=== PATIENT | female | born 1955 | race Hispanic/Latino ===

== ENCOUNTER 2018-10-18 13:30 | Emergency (ER) | payer MEDICARE, OTHER ==
[~2018-10-18] VITALS: Ht 149.9 cm; Wt 63.5 kg
--- OUTSIDE RECORDS SUMMARY | 2018-10-18 13:34 | XMS REPORT | Continuity of Care Document ---
Author Author [facility] Address Unknown Phone Unavailable Problems Problem Status Onset Date Classification Date Reported Comments Source Pain of left hand Active Diagnosis 02/27/2018 Lissette Najam Pain in right hand Active Diagnosis 02/27/2018 Lissette Najam Lumbago due to displacement of intervertebral disc Active Problem 02/27/2018 Lissette Najam Counseling NOS Active Diagnosis 02/27/2018 Lissette Najam Medications Medication Details Route Status Patient Instructions Ordering Provider Order Date Source Duloxetine HCl 1 capsule Orally Active 60 MG Orally Once a day Najam Lissette Najam Tizanidine HCl 1 tablet as needed Orally Active 4 MG Orally Three times a day Najam Lissette Najam Hydrocodone-Acetaminophen 1 tablet as needed Orally Active 10- 300 MG Orally every 6 hrs Najam Lissette Najam Meloxicam 1 tablet Orally Active 15 MG Orally Once a day Najam Lissette Najam Lyrica 1 capsule Orally Active 200 MG Orally Twice a day Najam Lissette Najam Allergies, Adverse Reactions, Alerts Substance Category Reaction Severity Reaction type Status Date Reported Comments Source Tetnus Adverse Reaction rash Adverse Reaction Active 02/25/2018 Lissette Najam Immunizations Immunization Date Given Site Status Last Updated Comments Source Results Order Name Results Value Reference Range Date Interpretation Comments Source Vital Signs Vital Sign Value Date Comments Source Height 59 02/25/2018 Lissette Najam Diastolic (mm Hg) 80 02/25/2018 Lissette Najam Systolic (mm Hg) 129 02/25/2018 Lissette Najam Weight 143.8 02/25/2018 Lissette Najam Encounters Location Location Details Encounter Type Encounter Number Reason For Visit Attending Provider ADM Date DC Date Status Source Procedures Procedure Code Date Perfomer Comments Source
--- OUTSIDE RECORDS SUMMARY | 2018-10-18 13:34 | XMS REPORT ---
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 Name Role Phone Lissette Moser CP Unavailable Allergies, Adverse Reactions, Alerts Substance Reaction Event Type Tetnus rash Non Drug Allergy Problems Problem Type Condition Code Onset Dates Condition Status Assessment Pain of left hand M79.642 Active Assessment Pain in right hand M79.641 Active Problem Lumbago due to displacement of intervertebral disc M51.26 Active Assessment Lumbago due to displacement of intervertebral disc M51.26 Active Assessment Counseling NOS Z71.9 Active Medications Medication Code System Code Instructions Start Date End Date Status Dosage Duloxetine HCl ND 34665229517 60 MG Orally Once a day Active 1 capsule Tizanidine HCl ND 99747248579 4 MG Orally Three times a day Active 1 tablet as needed Hydrocodone-Acetaminophen ND 90825180857 10-300 MG Orally every 6 hrs Active 1 tablet as needed Meloxicam ND 22842949747 15 MG Orally Once a day Active 1 tablet Lyrica ND 69075508168 200 MG Orally Twice a day Active 1 capsule Vital Signs Date/Time: February 25, 2018 Height 59 in Blood Pressure Diastolic 80 mm Hg Blood Pressure Systolic 129 mm Hg Weight 143.8 lbs Results No Known Results Summary Purpose [employer] Submission
[2018-10-18] MEDS ORDERED: MORPHINE SULFATE INJ 4 MG/ML INJ IV NR (13:43)
[2018-10-18] MEDS ORDERED: ONDANSETRON HCL INJ 2 MG/ML VIAL IV NR (13:43)
[2018-10-18] MEDS ORDERED: SODIUM CHLORIDE 0.9% 1000ML 1,000 ML IV STA (13:43)
[2018-10-18 14:24] LABS: BASOPHILS % 0.6 % (0.0-1.0); EOSINOPHILS # (AUTO) 0.1 (0.0-0.4); EOSINOPHILS % 0.7 % (0.0-6.0); HEMOGLOBIN 14.2 g/dL (12.0-16.0); LYMPHOCYTES # (AUTO) 2.8 (1.0-3.2); LYMPHOCYTES % 40.4 % (18.0-39.1); MEAN CORPUSCULAR HEMOGLOBIN 30.9 pg (28-32); MEAN CORPUSCULAR HGB CONC 33.8 g/dL (31-35); MEAN CORPUSCULAR VOLUME 91.3 fL (81-99); MONOCYTES # (AUTO) 0.4 (0.2-0.8); MONOCYTES % 5.7 % (4.4-11.3); NEUTROPHILS # (AUTO) 3.6 (2.1-6.9); NEUTROPHILS % 52.5 % (38.7-80.0); PLATELET COUNT 211 x10e3/uL (140-360); RED CELL DISTRIBUTION WIDTH 13.3 % (11.7-14.4)
[2018-10-18 14:45] LABS: INR 0.79; PROTHROMBIN TIME 11.7 seconds (11.9-14.5)
[2018-10-18 14:46] LABS: PARTIAL THROMBOPLASTIN TIME 31.7 seconds (23.8-35.5)
[2018-10-18 14:54] LABS: BILIRUBIN,URINE NEGATIVE (NEGATIVE); CLARITY,URINE HAZY (CLEAR); COLOR,URINE YELLOW (YELLOW); KETONES,URINE NEGATIVE (NEGATIVE); LEUKOCYTE ESTERASE ,URINE NEGATIVE (NEGATIVE); NITRITE,URINE NEGATIVE (NEGATIVE); PROTEIN,URINE DIPSTICK NEGATIVE (NEGATIVE); URINE UROBILINOGEN 0.2 mg/dL (0.2 - 1)
[2018-10-18 14:55] LABS: BACTERIA,URINE RARE /HPF; EPITHELIAL CELLS,URINE MODERATE /LPF; RBC,URINE 0-5 /HPF (0-5); WBC,URINE (MAN) 0-5 /HPF (0-5)
[2018-10-18 14:57] LABS: ALBUMIN 4.2 g/dL (3.5-5.0); ALBUMIN/GLOBULIN RATIO 1.3 (0.8-2.0); CALCIUM 9.8 mg/dL (8.4-10.2); CREATININE, SERUM 0.95 mg/dL (0.57-1.11); MAGNESIUM 2.2 MG/DL (1.3-2.1)
[2018-10-18] MEDS ORDERED: IOPAMIDOL 370 MG/ML 200 ML INFUS..BTL INJ ONE (16:09)
[2018-10-18] MEDS ORDERED: SODIUM CHLORIDE 0.9% 50ML 50 ML ONE (16:09)
--- NOTE | 2018-10-18 17:55 | Diagnostic Imaging Report ---
EXAM: CT Abdomen and Pelvis WITH contrast INDICATION: Right lower quadrant pain. Appendicitis. COMPARISON: None. TECHNIQUE: Abdomen and pelvis were scanned utilizing a multidetector helical scanner from the lung base to the pubic symphysis after administration of IV contrast. Coronal and sagittal reformations were obtained. Routine protocol was performed. Scan was performed when during portal venous phase. IV CONTRAST: 100 cc of Isovue 370. ORAL CONTRAST: Water RADIATION DOSE: Total DLP: 339.29 mGy*cm Estimated effective dose: (DLP x 0.015 x size factor) mSv COMPLICATIONS: None FINDINGS: LINES and TUBES: None. LOWER THORAX: Unremarkable HEPATOBILIARY: No focal hepatic lesions. No biliary ductal dilation. GALLBLADDER: No radio-opaque stones or sludge. No wall thickening. SPLEEN: No splenomegaly. PANCREAS: No focal masses or ductal dilatation. ADRENALS: No adrenal nodules KIDNEYS/URETERS: Kidneys enhance symmetrically. No hydronephrosis. No cystic or solid mass lesions. No stones. GI TRACT: No abnormal distention, wall thickening, or evidence of bowel obstruction. Appendix is normal. PELVIC ORGANS/BLADDER: Unremarkable. LYMPH NODES: No lymphadenopathy. VESSELS: There is moderate atherosclerotic disease in the aorta and major arterial branches. PERITONEUM / RETROPERITONEUM: No free air or fluid. BONES: Advanced degenerative disc disease and spondylosis at L3-L4. Postoperative changes at L3-L4 and L4-L5 laminectomies. SOFT TISSUES: Unremarkable. IMPRESSION: 1. Normal appendix. No evidence of acute appendicitis as per clinical query. Signed by: Dr. Abigail Trevino M.D. on 10/18/2018 5:52 PM
== END 2018-10-18 18:51 | disposition home or self-care (01) ==
LOC: ER 13:30
DX: R10.31 Right lower quadrant pain (principal); M54.5 Low back pain; R11.0 Nausea; E13.9 Other specified diabetes mellitus without complications
CPT/HCPCS: 36415; 74177; 80053; 81001; 83605; 83735; 85025; 85610; 85730; 99284; J2270; J2405; J7030; Q9967

== ENCOUNTER 2019-10-05 11:32 | Outpatient (RCR) | payer MEDICARE, OTHER ==
--- NOTE | 2019-09-28 15:00 | NUR ---
Voice Evaluation History: Pt is a 64 year old female seen in clinic today for a voice evaluation secondary to muscle tension dysphonia, vocal cord polyps, and laryngopharyngeal reflux. No other pertinent past medical history provided. Pt reported that she noticed a gradual change in her vocal quality over a year ago and so went to see Dr. Villavicencio. Per report, Dr. Villavicencio found evidence of silent reflux and a polyp on her vocal cord. Pt did not know which one. Per pt report, the polyp was removed by Dr. Villavicencio. Pt stated that her voice did not get any better and recently has gotten worse. She stated that she went back to see Dr. Villavicencio, who told her the polyp is coming back. Pt reported that he increased her reflux medication to twice per day and wanted her to be evaluated and treated by a Speech Language Pathologist. Ms. Colmenares reported that her voice is raspy and cuts out on her often. She also stated that the longer she talks the worse her voice sounds and the more is cuts off suddenly. Ms. Colmenares reported frequent throat clearing and dry cough throughout the day and feels like she produces a lot of mucous. Pt smokes about 1 pack per day. She drinks two cups of coffee each day but also drinks a lot of water. Current Medications: according to the intake form completed by Ms. Colmenares, current medication list includes pantoprazole 40 mg once per day (in the morning) and famotidine 40 mg at night. Employment and use of voice: Ms. Colmenares is disabled and uses her voice for communication at home and with friends only. Per report, her vocal demand is very low Pt Goal: to sound normal Laryngeal Examination: Pt appears to have larynx at midline with unrestricted movement and normal elevation. No muscle tension was noted in the laryngeal area, glossal area, or the sternocleidomastoid area. Gentle palpation of temples, jaw, shoulders, neck, strap muscles, and larynx resulted in no discomfort or pain. Hearing: Appeared to be WFL. Objective Measurements: AverageRangeNormal Sustained Vowel88 dB87-88 dB80 dB High/Low FrequencyHigh: 370 Hz Lo: 244 [id number] By223-260 Hz Max Sustained Phonation4.7 seconds3-6 bzmewhn24-60 seconds Perceptual Measure: Ms. Colmenares feels her voice is unpredictable and feels tense when speaking because she never knows if her voice will work or not. She consistent avoids speaking in social situations or in groups because she is embarrassed by the way her voice sounds. Per report, it requires a great deal of effort to speak clearing and she must strain her voice to produce a voice loud enough for others to understand. Completion of the Voice Handicap Index (VHI) showed a total score of 43, which is reflective of a perception of a moderate voice disorder. Oral Motor Exam: An oral motor speech exam revealed structures and function of speech mechanism to be WFL. Education: Ms. Colmenares was educated regarding basic anatomy and physiology of the vocal cords. Vocal hygiene and reflux precautions were covered in extensive detail. The importance of taking reflux medications and controlling reflux with behavioral modifications was stressed extensively. Treatment/Stimulability: Various techniques to alter the way Ms. Colmenares used her voice were attempted to assess for improved vocal quality and stimulability to therapeutic stimuli. Pt demonstrated fair stimulability and was able to intermittently produce vowel sounds with improved quality. Treatment techniques were introduced and home program assigned. 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 This disorder decreases her ability to participate in activities of daily living her quality of life by limiting her participation in things he enjoys. Ms. Colmenares would benefit from voice therapy to improve functional use of voice for improved vocal quality. Prognosis: fair for improved vocal quality secondary to a high level of motivation to improve and fair stimulability to produce clear vocal quality in isolated vowel sounds. Recommendations: 1. Voice therapy 1/week X 4 weeks 2. Vocal hygiene program 3. GERD precautions Mcc Goal(s): Patient will restore vocal quality to perform functional demands of conversational speech. Short Term Goals: 1. Pt will follow vocal hygiene recommendations with independence for improvement in vocal fold health for vocalization. 2. Pt will follow GERD precautions with independence for improvement of vocal cord health. 3. Pt will implement gentle use of voice with easy onset exercises with independence. 4. Pt will complete exercises to increase loudness of speech without compromising functional and appropriate use of vocal cords with independence. 5. Pt will complete home exercise program of stretches and practice of therapeutic stimuli with independence. Thank you for including me in the care of your patient. Please do not hesitate to contact me at [phone] should you have any questions regarding this evaluation or the plan of care. Aviva Bolivar M.A. [facility]-SCREED PERSON Date of Session: 09/28/19 Analysis of Voice and Resonance X 55 minutes NOMS Voice Level 3
--- NOTE | 2019-10-12 10:44 | NUR ---
ST Note: Pt did not keep appointment scheduled today at 10:00. Called, no answer, left a VM.
== END 2019-10-16 ==
LOC: ST 11:32
PROVIDERS: ATTEND Otolaryngology
DX: R49.0 Dysphonia (principal); J38.1 Polyp of vocal cord and larynx; K21.9 Gastro-esophageal reflux disease without esophagitis

== ENCOUNTER → 2020-06-14 | Day surgery (SDC) | payer MEDICARE, OTHER ==
[2020-06-09 10:24] LABS: BASOPHILS % 0.4 % (0.0-1.0); EOSINOPHILS # (AUTO) 0.1 (0.0-0.4); EOSINOPHILS % 1.1 % (0.0-6.0); HEMATOCRIT 41.9 % (34.2-44.1); LYMPHOCYTES # (AUTO) 2.7 (1.0-3.2); LYMPHOCYTES % 37.3 % (18.0-39.1); MEAN CORPUSCULAR HEMOGLOBIN 30.4 pg (28-32); MEAN CORPUSCULAR HGB CONC 33.4 g/dL (31-35); MEAN CORPUSCULAR VOLUME 90.9 fL (81-99); MONOCYTES # (AUTO) 0.6 (0.2-0.8); NEUTROPHILS # (AUTO) 3.8 (2.1-6.9); NEUTROPHILS % 52.9 % (38.7-80.0); PLATELET COUNT 182 x10e3/uL (140-360); RED BLOOD COUNT 4.61 x10e6/uL (3.6-5.1); RED CELL DISTRIBUTION WIDTH 12.7 % (11.7-14.4)
[2020-06-09 10:40] LABS: ANION GAP 15.5 mmol/L (8-16); BLOOD UREA NITROGEN 16 mg/dL (7-26); BUN/CREATININE RATIO 18 (6-25); CALCIUM 9.2 mg/dL (8.4-10.2); CARBON DIOXIDE 26 mmol/L (22-29); CHLORIDE 104 mmol/L (98-107); EST GLOMERULAR FILTRATION RATE > 60 ML/MIN (60-); GLUCOSE 170 mg/dL (74-118); POTASSIUM 4.5 mmol/L (3.5-5.1); SODIUM 141 mmol/L (136-145)
--- NOTE | 2020-06-09 11:10 | Diagnostic Imaging Report ---
EXAMINATION: CHEST 2 VIEWS INDICATION: Pre-operative COMPARISON: None FINDINGS: LINES/TUBES:Spinal stimulator electrodes terminate at the levels of T6 and T7. LUNGS:The lungs are well-inflated. Mild left apical pleural parenchymal thickening/scarring. No focal consolidation or pulmonary edema. PLEURA:No pleural effusion or pneumothorax. MEDIASTINUM:The cardiomediastinal silhouette appears normal in size and shape. BONES/SOFT TISSUES:No acute osseous injury. Partially visualized cervical spine fusion hardware. ABDOMEN:No free air under the diaphragm. IMPRESSION: No focal pneumonia or pulmonary edema. Signed by: Justine Melara MD on 06/09/2020 11:07 AM
[~2020-06-14] MED LIST: ATORVASTATIN CA20 MG PO; CEFAZOLIN SOD 1 GM/NS 50ML 100 ML IV ONE; CYMBALTA30 MG PO; ETOMIDATE 2 MG/ML 10 ML INJ IV ONE; KETOROLAC TROMETHAMINE 30 MG/ML VIAL ONE; LIDOCAINE HCL 2% LOCAL INJ 5 ML SDV VIAL INJ ONE; LYRICA150 MG PO; MELOXICAM7.5 MG PO; ONDANSETRON HCL INJ 2MG/ML 2ML 2 MG/ML VIAL ONE; PERCOCET 10-321 EACH PO; PROPOFOL IV EMULSION 10 MG/ML 20 ML VIAL ONE; SEVOFLURANE INHAL SOLN 250 ML PEN BTL ONE; TIZANIDINE HCL4 MG PO
[2020-06-14 09:10] VITALS: BP 154/77
--- NOTE | 2020-06-15 10:07 | Operative Report ---
DATE OF PROCEDURE: 06/14/2020 SURGEON: Lv Salazar MD PREOPERATIVE DIAGNOSIS: Left carpal tunnel syndrome. POSTOPERATIVE DIAGNOSIS: Left carpal tunnel syndrome. OPERATIONS/PROCEDURES PERFORMED: The patient underwent a left open carpal tunnel release. PATIENT CASE COORDINATOR: There was no certified surgical tech/first assistant. ANESTHESIA: General endotracheal intubation anesthesia. IV FLUIDS: Per Anesthesia record. BRIEF DESCRIPTION OF THE PATIENT'S OPERATIVE PROCEDURE: Ms. Colmenares was taken to the operating room and placed in supine position on the operating table. Following induction of general anesthesia as well as an endotracheal intubation, the patient's left upper extremity was examined under anesthesia. She was found to have no gross abnormalities. The patient's upper extremity was prepped and draped in standard surgical fashion. The case was begun by creating incision along the thenar palmar crease. This incision was carried through the skin only. Blunt dissection was used to deepen the incision through the palmar fascia to the level of transverse carpal ligament. The distal edge of the transverse carpal ligament was identified and hemostat was placed beneath the ligament. The ligament was then divided in line with the skin incision. The floor of the carpal canal was evaluated and found to have no abnormalities. The tourniquet was deflated and the wound was then closed in a single layer fashion. Sterile dressings were applied. The patient was then awakened and taken to postanesthesia care unit in stable condition. MD DULCE Lamb/MODL /[id number]
== END | disposition home or self-care (01) ==
LOC: OR 05:20
PROVIDERS: ATTEND Specialist
DX: G56.02 Carpal tunnel syndrome, left upper limb (principal); E11.9 Type 2 diabetes mellitus without complications; K21.9 Gastro-esophageal reflux disease without esophagitis; G89.29 Other chronic pain; F17.210 Nicotine dependence, cigarettes, uncomplicated; Z88.7 Allergy status to serum and vaccine; Z01.810 Encounter for preprocedural cardiovascular examination; Z01.812 Encounter for preprocedural laboratory examination; Z01.818 Encounter for other preprocedural examination; Z11.59 Encounter for screening for other viral diseases; Z68.28 Body mass index [BMI] 28.0-28.9, adult
CPT/HCPCS: 36415 ×2; 64721; 71046; 80048; 82948; 85025; 93005; J0690; J1885; J2001; J2405; J2704; U0002

== ENCOUNTER → 2021-06-13 | Outpatient (CLI) | payer MEDICARE ==
[~2021-06-13] MED LIST changes: -CEFAZOLIN SOD 1 GM/NS 50ML 100 ML IV ONE; -ETOMIDATE 2 MG/ML 10 ML INJ IV ONE; +IOPAMIDOL 370 MG/ML 200 ML INFUS..BTL INJ ONE; -KETOROLAC TROMETHAMINE 30 MG/ML VIAL ONE; -LIDOCAINE HCL 2% LOCAL INJ 5 ML SDV VIAL INJ ONE; -ONDANSETRON HCL INJ 2MG/ML 2ML 2 MG/ML VIAL ONE; -PROPOFOL IV EMULSION 10 MG/ML 20 ML VIAL ONE; -SEVOFLURANE INHAL SOLN 250 ML PEN BTL ONE; +SODIUM CHLORIDE 0.9% 500ML 500 ML ONE; +SODIUM CHLORIDE 0.9% 50ML 50 ML ONE
== END ==
LOC: CT 16:20
PROVIDERS: ATTEND Internal Medicine
DX: I65.23 Occlusion and stenosis of bilateral carotid arteries (principal)
CPT/HCPCS: 36415; 70496; 82565; 96360; J7040; Q9967

== ENCOUNTER → 2021-07-26 | Outpatient (CLI) | payer MEDICARE ==
[~2021-07-26] MED LIST changes: -IOPAMIDOL 370 MG/ML 200 ML INFUS..BTL INJ ONE; -SODIUM CHLORIDE 0.9% 500ML 500 ML ONE; -SODIUM CHLORIDE 0.9% 50ML 50 ML ONE
== END ==
LOC: RAD 11:14
PROVIDERS: ATTEND Anesthesiology Pain Medicine
DX: M25.562 Pain in left knee (principal)

== ENCOUNTER → 2022-03-08 | Outpatient (CLI) | payer MEDICARE, OTHER | LOC: MRI 07:20 | PROVIDERS: ATTEND Family Medicine | DX: M54.16 Radiculopathy, lumbar region (principal) | CPT/HCPCS: 72148 ==

== ENCOUNTER → 2022-04-10 | Outpatient (CLI) | payer MEDICARE, OTHER ==
[~2022-04-10] MED LIST changes: +IOPAMIDOL 200 MG/ML 20 ML VIAL IT ONE; +IOPAMIDOL 300 MG/ML 15ML VIAL IT ONE; +LIDOCAINE HCL 1% LOCAL INJ 20 ML VIAL ONE
[2022-04-10 08:46] LABS: HEMOGLOBIN 14.5 g/dL (12.0-16.0)
[2022-04-10 09:12] LABS: INR 0.85; PROTHROMBIN TIME 12.4 seconds (11.9-14.5)
[2022-04-10 09:13] LABS: PARTIAL THROMBOPLASTIN TIME 35.2 seconds (23.8-35.5)
[2022-04-10 09:19] LABS: CREATININE, SERUM 0.73 mg/dL (0.57-1.11)
== END ==
LOC: DX 08:10
PROVIDERS: ATTEND Neurological Surgery
DX: M51.16 Intervertebral disc disorders with radiculopathy, lumbar region (principal)
CPT/HCPCS: 36415; 62304; 72132; 82565; 84520; 85014; 85049; 85610; 85730; J2001; Q9967 ×2

== ENCOUNTER → 2022-07-03 | Outpatient (CLI) | payer MEDICARE, OTHER ==
[~2022-07-03] MED LIST changes: -IOPAMIDOL 200 MG/ML 20 ML VIAL IT ONE; -IOPAMIDOL 300 MG/ML 15ML VIAL IT ONE; -LIDOCAINE HCL 1% LOCAL INJ 20 ML VIAL ONE
== END ==
LOC: MRI 12:01
PROVIDERS: ATTEND Orthopaedic Surgery
DX: M19.011 Primary osteoarthritis, right shoulder (principal); M75.111 Incomplete rotator cuff tear or rupture of right shoulder, not specified as traumatic

== ENCOUNTER → 2022-07-30 | Outpatient (CLI) | payer MEDICARE, OTHER ==
[2022-07-24 11:58] LABS: BASOPHILS # (AUTO) 0.1 (0.0-0.1); BASOPHILS % 0.6 % (0.0-1.0); EOSINOPHILS # (AUTO) 0.1 (0.0-0.4); EOSINOPHILS % 1.6 % (0.0-6.0); HEMATOCRIT 41.1 % (34.2-44.1); HEMOGLOBIN 14.1 g/dL (12.0-16.0); LYMPHOCYTES # (AUTO) 2.8 (1.0-3.2); LYMPHOCYTES % 34.5 % (18.0-39.1); MEAN CORPUSCULAR HEMOGLOBIN 31.2 pg (28-32); MEAN CORPUSCULAR HGB CONC 34.3 g/dL (31-35); MEAN CORPUSCULAR VOLUME 90.9 fL (81-99); MONOCYTES # (AUTO) 0.5 (0.2-0.8); MONOCYTES % 6.7 % (4.4-11.3); NEUTROPHILS # (AUTO) 4.5 (2.1-6.9); NEUTROPHILS % 56.4 % (38.7-80.0); PLATELET COUNT 206 x10e3/uL (140-360); RED BLOOD COUNT 4.52 x10e6/uL (3.6-5.1); RED CELL DISTRIBUTION WIDTH 12.1 % (11.7-14.4)
[2022-07-24 12:15] LABS: ANION GAP 15.4 mmol/L (8-16); CALCIUM 9.3 mg/dL (8.4-10.2); CREATININE, SERUM 0.7 mg/dL (0.57-1.11); POTASSIUM 4.4 mmol/L (3.5-5.1)
[~2022-07-30] MED LIST changes: +ALBUTEROL0.63 MG/3 NEB; +CRESTOR10 MG PO; +LANTUS 3ML100 UNITS/ SQ; +LOSARTAN POTASS25 MG PO; +METFORMIN HCL500 MG PO; +MONTELUKAST SOD10 MG PO; +PROTONIX20 MG PO
== END ==
LOC: EDSTATUS 09:00 → RAD 11:45
PROVIDERS: ATTEND Orthopaedic Surgery
DX: M19.011 Primary osteoarthritis, right shoulder (principal)
CPT/HCPCS: 36415; 71046; 80048; 85025; 93005

== ENCOUNTER 2022-08-13 10:23 | Observation (INO) | payer MEDICARE, OTHER ==
[~2022-08-13] VITALS: Ht 149.9 cm; Wt 63.5 kg
[2022-08-13] MEDS ORDERED: ROCURONIUM BROMIDE 10 MG/ML 5ML VIAL IV ONE (11:50)
[2022-08-13] MEDS ORDERED: ACETAMINOPHEN 1000 MG/100 ML IV ONE (11:50)
[2022-08-13] MEDS ORDERED: POVIDONE IODINE 0.05% 0.05 % ML PO ONE (11:50)
[2022-08-13] MEDS ORDERED: NEOSTIGMINE 1 MG/ML 10ML VIAL ONE (11:50)
[2022-08-13] MEDS ORDERED: ONDANSETRON HCL INJ 2MG/ML 2ML 2 MG/ML VIAL ONE (11:50)
[2022-08-13] MEDS ORDERED: PROPOFOL IV EMULSION 10 MG/ML 20 ML VIAL ONE (11:50)
[2022-08-13] MEDS ORDERED: GLYCOPYRROLATE INJ 0.2 MG/ML VIAL ONE (11:50)
[2022-08-13] MEDS ORDERED: LIDOCAINE HCL 2% LOCAL INJ 5 ML SDV VIAL INJ ONE (11:50)
[2022-08-13] MEDS ORDERED: ATROPINE SULFATE 1 MG/ML VIAL ONE (11:50)
[2022-08-13] MEDS ORDERED: SEVOFLURANE INHAL SOLN 250 ML PEN BTL ONE (11:50)
[2022-08-13] MEDS ORDERED: ROPIVACAINE 0.5% 5 MG/ML 30 ML SDV ONE (13:24)
[2022-08-13] MEDS ORDERED: FENTANYL CITRATE/PF 100MCG/2 ML INJ ONE (13:46)
[2022-08-13] MEDS ORDERED: SODIUM CHLORIDE FLUSH 10 ML SYR INJ PRN (14:00)
[2022-08-13] MEDS ORDERED: CEPACOL SORE THROAT LOZENGES PO PRN (14:15)
[2022-08-13 15:35] VITALS: BP 120/58
[2022-08-13 15:42] VITALS: BP 120/58
[2022-08-13 15:43] VITALS: BP 120/58
[2022-08-13] MEDS: LACTATED RINGER'S 1,000 ML INJ SCH (15:48)
[2022-08-13 16:00] VITALS: BP 128/56
[2022-08-13] MEDS: INSULIN LISPRO 100 UNIT/1 ML 3ML VIAL SQ SCH ×2 (16:30→19:57)
[2022-08-13] MEDS ORDERED: DEXTROSE 50% SYRINGE 50 ML IV PRN (16:30)
[2022-08-13 17:11] LABS: BASOPHILS % 0.2 % (0.0-1.0); EOSINOPHILS # (AUTO) 0.1 (0.0-0.4); EOSINOPHILS % 0.4 % (0.0-6.0); HEMATOCRIT 39.7 % (34.2-44.1); HEMOGLOBIN 13.6 g/dL (12.0-16.0); LYMPHOCYTES # (AUTO) 2.1 (1.0-3.2); LYMPHOCYTES % 17.3 % (18.0-39.1); MEAN CORPUSCULAR HEMOGLOBIN 31.1 pg (28-32); MEAN CORPUSCULAR HGB CONC 34.3 g/dL (31-35); MEAN CORPUSCULAR VOLUME 90.6 fL (81-99); MONOCYTES # (AUTO) 0.7 (0.2-0.8); MONOCYTES % 5.5 % (4.4-11.3); NEUTROPHILS # (AUTO) 9.2 (2.1-6.9); NEUTROPHILS % 76.4 % (38.7-80.0); PLATELET COUNT 218 x10e3/uL (140-360); RED BLOOD COUNT 4.38 x10e6/uL (3.6-5.1); RED CELL DISTRIBUTION WIDTH 12.1 % (11.7-14.4)
[2022-08-13] MEDS: HYDROCODONE/APAP 5MG-325MG TAB PO SCH ×2 (17:13→22:50)
[2022-08-13 17:27] LABS: ANION GAP 13.3 mmol/L (8-16); CALCIUM 9.2 mg/dL (8.4-10.2); CREATININE, SERUM 0.7 mg/dL (0.57-1.11); POTASSIUM 3.3 mmol/L (3.5-5.1)
[2022-08-13] MEDS: PANTOPRAZOLE SOD 40 MG TABEC PO SCH (17:44)
[2022-08-13] MEDS: PREGABALIN 75 MG CAP PO SCH (17:44)
[2022-08-13] MEDS: TIZANIDINE HCL 4 MG TAB PO SCH (17:45)
[2022-08-13 19:54] VITALS: BP 122/72
[2022-08-13] MEDS: INSULIN GLARGINE 100 UNITS/ML VIAL SQ SCH (19:57)
[2022-08-13] MEDS: ONDANSETRON HCL INJ 2MG/ML 2ML 2 MG/ML VIAL IV PRN (20:01)
[2022-08-13] MEDS: Morphine 4mg INJECTION 4 MG/ML INJ IV PRN (20:02)
[2022-08-13 20:05] VITALS: BP 122/72
[2022-08-14] VITALS (8 sets, daily range): BP systolic 116–151; BP diastolic 62–91
[2022-08-14] MEDS: ONDANSETRON HCL INJ 2MG/ML 2ML 2 MG/ML VIAL IV PRN (00:07)
[2022-08-14] MEDS: Morphine 4mg INJECTION 4 MG/ML INJ IV PRN ×4 (00:09→10:15)
[2022-08-14] MEDS ORDERED: ACETAMINOPHEN 325 MG TAB PO PRN (02:30)
[2022-08-14 04:24] LABS: BASOPHILS % 0.3 % (0.0-1.0); EOSINOPHILS % 0.1 % (0.0-6.0); HEMATOCRIT 34.5 % (34.2-44.1); HEMOGLOBIN 12.2 g/dL (12.0-16.0); LYMPHOCYTES # (AUTO) 0.8 (1.0-3.2); LYMPHOCYTES % 9.9 % (18.0-39.1); MEAN CORPUSCULAR HEMOGLOBIN 31.5 pg (28-32); MEAN CORPUSCULAR HGB CONC 35.4 g/dL (31-35); MEAN CORPUSCULAR VOLUME 89.1 fL (81-99); MONOCYTES # (AUTO) 0.7 (0.2-0.8); MONOCYTES % 8.8 % (4.4-11.3); NEUTROPHILS # (AUTO) 6.2 (2.1-6.9); NEUTROPHILS % 80.4 % (38.7-80.0); PLATELET COUNT 190 x10e3/uL (140-360); RED BLOOD COUNT 3.87 x10e6/uL (3.6-5.1); RED CELL DISTRIBUTION WIDTH 12.6 % (11.7-14.4)
[2022-08-14 04:47] LABS: ALBUMIN 3.4 g/dL (3.5-5.0); ALBUMIN/GLOBULIN RATIO 1.2 (0.8-2.0); ANION GAP 16.5 mmol/L (8-16); CALCIUM 8.9 mg/dL (8.4-10.2); CREATININE, SERUM 0.81 mg/dL (0.57-1.11); MAGNESIUM 1.7 MG/DL (1.3-2.1); POTASSIUM 3.5 mmol/L (3.5-5.1)
[2022-08-14] MEDS: HYDROCODONE/APAP 5MG-325MG TAB PO SCH ×2 (06:00→12:00)
[2022-08-14] MEDS: LACTATED RINGER'S 1,000 ML INJ SCH ×2 (06:40→23:20)
[2022-08-14] MEDS: INSULIN LISPRO 100 UNIT/1 ML 3ML VIAL SQ SCH ×4 (07:30→20:56)
[2022-08-14] MEDS: INSULIN GLARGINE 100 UNITS/ML VIAL SQ SCH ×2 (09:00→20:56)
[2022-08-14] MEDS: TIZANIDINE HCL 4 MG TAB PO SCH ×2 (09:00→20:29)
[2022-08-14] MEDS ORDERED: HYDROCODONE/APAP 10MG-325MG TAB PO PRN ×3 (09:15→18:00)
[2022-08-14] MEDS: MONTELUKAST SODIUM 10 MG TAB PO SCH (13:00)
[2022-08-14] MEDS: PANTOPRAZOLE SOD 40 MG TABEC PO SCH ×2 (13:00→20:30)
[2022-08-14] MEDS: DULOXETINE HCL 30 MG DELAYED RELEASE PO SCH (13:00)
[2022-08-14] MEDS: PREGABALIN 75 MG CAP PO SCH ×2 (13:00→20:31)
[2022-08-14] MEDS: LOSARTAN POTASSIUM 25 MG TAB PO SCH (13:00)
[2022-08-14] MEDS ORDERED: NON-FORMULARY MEDICATION (Oxycodone Hcl/Acetaminophen (Percocet 10-325 Mg Tablet) 1 TAB) PO PRN (14:00)
[2022-08-14] MEDS: OXYCODONE/ACETAMINOPHEN 5-325 1 EACH TABLET PO PRN ×2 (14:57→19:05)
[2022-08-14] MEDS ORDERED: SIMVASTATIN 20 MG TAB PO SCH (21:00)
[2022-08-14] MEDS ORDERED: ENOXAPARIN 30 MG/0.3 ML SYR SC SCH (21:00)
[2022-08-15] MEDS: OXYCODONE/ACETAMINOPHEN 5-325 1 EACH TABLET PO PRN ×4 (00:24→14:00)
[2022-08-15 00:27] VITALS: BP 137/48
[2022-08-15 05:02] VITALS: BP 118/57
[2022-08-15] MEDS: INSULIN LISPRO 100 UNIT/1 ML 3ML VIAL SQ SCH ×2 (07:30→11:30)
[2022-08-15 08:05] VITALS: BP 112/52
[2022-08-15] MEDS: DULOXETINE HCL 30 MG DELAYED RELEASE PO SCH (09:00)
[2022-08-15] MEDS: LOSARTAN POTASSIUM 25 MG TAB PO SCH (09:00)
[2022-08-15] MEDS: TIZANIDINE HCL 4 MG TAB PO SCH (09:00)
[2022-08-15] MEDS: PREGABALIN 75 MG CAP PO SCH (09:00)
[2022-08-15] MEDS: PANTOPRAZOLE SOD 40 MG TABEC PO SCH (09:00)
[2022-08-15] MEDS: MONTELUKAST SODIUM 10 MG TAB PO SCH (09:00)
[2022-08-15] MEDS: INSULIN GLARGINE 100 UNITS/ML VIAL SQ SCH (09:00)
[2022-08-15 10:09] VITALS: BP 112/52
[2022-08-15 12:22] VITALS: BP 117/77
== END 2022-08-15 14:10 | disposition home or self-care (01) ==
LOC: OR 10:23 → PACU V 13:11 → MED/SURG 15:05 → MED/SURG2 08-14 17:15
PROVIDERS: ADMIT Orthopaedic Surgery; ATTEND Orthopaedic Surgery
DX: M19.011 Primary osteoarthritis, right shoulder (principal); E11.69 Type 2 diabetes mellitus with other specified complication; E78.5 Hyperlipidemia, unspecified; I10 Essential (primary) hypertension; Z88.7 Allergy status to serum and vaccine; F32.A Depression, unspecified; Z79.4 Long term (current) use of insulin
CPT/HCPCS: 23470; 36415 ×3; 80048; 80053; 82948 ×3; 83735; 85025 ×2; 96372; 97161; 97530; C1776; G0378 ×3; J0131; J0461; J0690 ×2; J1815; J2001; J2270 ×2; J2405 ×2; J2704; J2710; J2795; J3010; J7050 ×2; J7121 ×2; S0164 ×3

== ENCOUNTER 2022-12-14 08:53 | Emergency (ER) | payer MEDICARE, OTHER ==
[~2022-12-14] VITALS: Ht 149.9 cm; Wt 63.5 kg
== END 2022-12-14 10:29 | disposition home or self-care (01) ==
LOC: ER 08:59
DX: M54.50 Low back pain, unspecified (principal); G89.29 Other chronic pain; I10 Essential (primary) hypertension; E11.9 Type 2 diabetes mellitus without complications; E78.5 Hyperlipidemia, unspecified; K21.9 Gastro-esophageal reflux disease without esophagitis; F41.9 Anxiety disorder, unspecified
CPT/HCPCS: 99281

== ENCOUNTER → 2023-01-22 | Outpatient (CLI) | payer MEDICARE, OTHER | LOC: MRI 10:08 | PROVIDERS: ATTEND Pain Medicine Pain Medicine | DX: M54.16 Radiculopathy, lumbar region (principal) | CPT/HCPCS: 72148; 73522 ==

== ENCOUNTER → 2024-09-21 | Outpatient (REF) | payer MEDICARE, OTHER | LOC: RAD 11:47 | PROVIDERS: ATTEND Pain Medicine Pain Medicine | DX: T85.122A Displacement of implanted electronic neurostimulator of spinal cord electrode (lead), initial encounter (principal) | CPT/HCPCS: 72072; 72110 ==

== ENCOUNTER → 2024-12-31 | Outpatient (REF) | payer MEDICARE, OTHER | LOC: MRI 12:39 | PROVIDERS: ATTEND Orthopaedic Surgery | DX: M43.16 Spondylolisthesis, lumbar region (principal) | CPT/HCPCS: 72110; 72148 ==